=== PATIENT | female | born 1935 | race Caucasian/White ===

== ENCOUNTER 2022-12-02 17:31 | Emergency (ER) | payer MEDICARE, SELFPAY ==
--- NOTE | ~2022-12-02 | XR_ITS ---
EXAMINATION: XR ELBOW, LEFT CLINICAL INFORMATION: Swelling. Pain. COMPARISON: None available. TECHNIQUE: AP, lateral, and oblique views of the left elbow. FINDINGS: Bone alignment is normal. No fracture or dislocation. Normal joint spaces. No joint effusion. Soft tissue swelling over the olecranon suggestive of olecranon bursitis. XR/XR elbow LT min 3V IMPRESSION: Soft tissue swelling over the olecranon suggestive of olecranon bursitis.
[2022-12-02 18:23] VITALS: BP 139/86; PULSE 70; TEMP 36.8; O2SAT 94; BMI 20.6
--- NOTE | 2022-12-02 18:24 | ED_ITS ---
HPI - Extremity Injury (Upper) General Chief Complaint: Extremity Injury, Upper Stated Complaint: left elbow swollen Time Seen by Provider: 12/02/22 18:53 Source: patient Mode of arrival: ambulatory Limitations: no limitations History of Present Illness HPI narrative: 87-year-old female presents with acute left elbow swelling. Symptoms started 2- 3 days ago. The swelling is getting progressively worse. There is no significant pain. There has been no discharge. No fevers or chills. No clear relieving or exacerbating features. She believes it started after gardening. As there is no pain, there is no radiation of pain. Pain level is a 0. Related Data Allergies Allergy/AdvReac Type Severity Reaction Status Date / Time caffeine Allergy Unknown Verified 09/23/18 00:00 sulfacetamide Allergy Unknown Verified 09/23/18 00:00 Codeine Sulfate Allergy Unknown Uncoded 09/23/18 00:00 Review of Systems Review of Systems: CONSTITUTIONAL: Denies weight loss, fever and chills. HEENT: Denies changes in vision and hearing. RESPIRATORY: Denies SOB and cough. CV: Denies palpitations no CP. GI: Denies abdominal pain, nausea, vomiting and diarrhea. : Denies dysuria and urinary frequency. MSK: Denies myalgia and joint pain. SKIN: Denies rash and pruritus. NEUROLOGICAL: Denies headache and syncope. PSYCHIATRIC: Denies recent changes in mood. Denies anxiety and depression. All other ROS are negative unless in HPI [facility] Social History Social History Alcohol intake: never Smoked in Last 30 Days: No Use of substances other than those prescribed or required for medical reasons: No Advance Directives: No Advance Directives Information Provided: No Physical Exam Vital Signs: Vital Signs: Last Vital Signs Temp 98.3 F 12/02/22 18:23 Pulse 70 12/02/22 18:23 BP 139/86 12/02/22 18:23 Pulse Ox 94 12/02/22 18:23 O2 Del Method Room Air 12/02/22 18:23 BMI result Body Mass Index 20.6 GEN: Well developed, no acute distress, alert, oriented HEENT: Normocephalic, atraumatic, normal external ears, nose appears normal Eyes: Normal to appearance Neck: Supple, no lymphadenopathy Respiratory: Talks in complete sentences, no respiratory distress Extremities: No clubbing cyanosis or edema, swollen left elbow consistent with olecranon bursitis Neurologic: No focal neurologic deficits, cranial nerves 2-12 intact, gait normal Skin: No rash Course Course Course Narrative: RME - 87 yo female presenting to the ER for evaluation of 2 weeks of left elbow swelling after working in her garden. Pain is mild but is most uncomfortable at night. Elbow is swollen, erythematous and warm but nontender and can be fully ranged. Plan: X-ray elbow Reevaluation(s) Reevaluation #1: Patient's examination is consistent with olecranon bursitis. An incision and drainage was performed using needle decompression. The fluid was serosanguineous. There is no purulence or cloudy discharge. Was straw-colored. There is no evidence of infection. There are no cellulitic changes. Patient was counseled regarding signs and symptoms of infection. She will follow up as needed. Time: 21:08 Medical Decision Making Medical Decision Making MDM Narrative: 87-year-old female presents with swelling of the left elbow. Examination reveals likely olecranon bursitis. Certainly this could be tophaceous gout although she has no history of gout. This could be infectious, inflammatory or traumatic. X-ray was ordered demonstrate no evidence of traumatic injury. Incision and drainage will be performed. Differential Diagnosis Differential Diagnoses: The differential diagnosis associated with the presentation includes (See above) Independent Interpretation I performed an independent interpretation of an: Plain X-Ray (Elbow left: No acute traumatic injury) Independent Historian Clinical information obtained from an independent historian. History obtained from or confirmed by: Spouse Prescription Management I considered prescription management with: Pain Medication and Antibiotic Procedures Bursa Procedures Time Out Performed: Yes Side of body: left Site of Procedure: olecranon bursa XRAY Obtained: normal Antisepsis Used: Povidone-Iodine1% Local Anesthetic: lidocaine 1% Amount of anesthesia used (mL): 2 Fluid obtained (mL): 12 Fluid Type: clear Patient Tolerated Procedure: well Complications: none Discharge Plan Discharge Clinical Impression: Bursitis, olecranon Patient Disposition: Home, Self-Care Instructions: Elbow Bursitis (ED) Referrals: Kasie Salazar MD [Primary Care Provider] - 1 week Interventions: ED Discharge Assessment Last Done: 12/02/22 20:23 Discharge Date/Time: 12/02/22 20:24
--- NOTE | 2022-12-02 19:34 | PC.NURSE ---
pt with ?fatty mass on l elbow approx size of kiwi, redness and slight warmth present.. Sts began 2 weeks [employer]. Has appt this with [facility] for other non related concerns. No acute distress at this time.
== END 2022-12-02 20:24 | disposition home or self-care (01) ==
PROVIDERS: Emergency Provider Emergency Medicine; PCP Internal Medicine
DX: M70.22 Olecranon bursitis, left elbow (principal); Y93.H2 Activity, gardening and landscaping
CPT/HCPCS: 20605; 73080; 99283; 99284